=== PATIENT | female | born 1955 | race Caucasian/White ===

== ENCOUNTER 2019-06-09 09:21 | Emergency (ER) | payer OTHER ==
[~2019-06-09] VITALS: Ht 152.4 cm; Wt 86.2 kg
--- NOTE | 2019-06-09 12:06 | EKG ---
[facility] [address] [facility] [place] [address] Signed Normal sinus rhythm Normal ECG No previous ECGs available Confirmed by KERA RENDON MD ([id number]) on 06/09/2019 12:05:45 PM Electronically Signed By: KERA RENDON MD 06/09/19 1206 PATIENT NAME: LUNA ALVAREZ LAKESHIA Electrocardiogram DATE OF : 59 PHYSICIAN: KERA RENDON MD REPORT #: [id number] REPORT IS CONFIDENTIAL AND NOT TO BE RELEASED WITHOUT AUTHORIZATION
== END 2019-06-09 16:35 | disposition home or self-care (01) ==
LOC: ED 09:21
DX: I21.4 Non-ST elevation (NSTEMI) myocardial infarction (principal); Z88.0 Allergy status to penicillin; Z88.8 Allergy status to other drugs, medicaments and biological substances; Z88.7 Allergy status to serum and vaccine
CPT/HCPCS: 71045; 80053; 84484; 85025; 85379; 93005; 93010; 96374; 96375; 99285-25; J1644; J2405

== ENCOUNTER 2022-02-17 07:56 | Day surgery (SDC) | payer OTHER ==
[~2022-02-17] VITALS: Ht 162.6 cm; Wt 93.4 kg
[~2022-02-17 07:56] MED LIST: ATORVASTATIN CA80 MG PO; BAYER CHEWABLE81 MG PO; DAILY VITAMIN1 EAC3 PO; EFFIENT10 MG PO; METOPROLOL SUCC25 MG PO; NITROSTAT0.4 MG SL; SINGULAIR10 MG PO; VENTOLIN HFA18 GM INH
--- NOTE | 2022-02-17 10:05 | NUR ---
02/17/22 Luz5 Roosevelt Palafox ORIENTED TO TIME AND SITUATION ON ENTRY TO PACU. DENIES NAUSEA OR PAIN.
--- NOTE | 2022-02-17 10:49 | OR ---
[facility] [address] [place], [place] [address] Signed DATE OF OPERATION: 02/17/2022 SURGEON: Jorden Black MD PREOPERATIVE DIAGNOSES: 1. Screening. 2. Unremarkable colonoscopy in 2010 at age 55. POSTOPERATIVE DIAGNOSES: 1. Minimal to moderate left-sided diverticulosis. 2. Minimal internal hemorrhoids. PROCEDURE: Colonoscopy without biopsy. ESTIMATED BLOOD LOSS: None. INDICATIONS: Marika is a 66-year-old obese female, asked to see me for a followup screening colonoscopy. She underwent screening colonoscopy in 2010 at the age of 55 in [place], [place]. That was negative according to her memory. She was asked to follow up in 10 years. We were trying to track down that report. She also has a heart history and follows along with Dr. Astorga. She went to him about two years ago just before her right hip replacement. Apparently everything was fine including the cardiac stent. 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 She has no family history of colon cancer or polyps. She has no lower GI complaints. In the office, I gave Marika a pamphlet on colonoscopy. We had reviewed the nature of the test together. There is risk including, but not limited to gas bloating, crampy abdominal pain, bleeding, perforation requiring surgery, and missed diagnosis. We also discussed the need for IV conscious sedation. She had expressed understanding and wished to proceed. PROCEDURE NOTE: Marika was taken into our endoscopy suite and placed in the left lateral decubitus position. She received IV antibiotics for the right hip replacement. A total of 6 mg of Versed and 125 mcg of fentanyl was given to cover the case. A digital rectal exam was performed and this was unremarkable. There were no external hemorrhoids and she had good sphincter tone. The adult colonoscope was introduced and advanced all around into the cecum under direct visualization of the camera without difficulty. Overall, the Electronically Signed By: JORDEN BLACK MD 02/17/22 1049 PATIENT NAME: MARIKA ALVAREZ OPERATIVE REPORT DATE OF : 59 REPORT #: [id number] PHYSICIAN: JORDEN BLACK MD PCP: DAMON MARIE MD REPORT IS CONFIDENTIAL AND NOT TO BE RELEASED WITHOUT AUTHORIZATION [facility] [address] [place] [id number] Signed prep was good. We could easily see the appendiceal orifice and the ileocecal valve. The scope was then slowly withdrawn. She does have minimal to moderate left-sided diverticulosis. They were minimal to moderate in size, few in number, and scattered about. We found no polyps. Once in the rectum, the scope was retroflexed and she does have minimal internal hemorrhoid tissue. After this, the gas was suctioned out and the colonoscope removed. Marika tolerated the procedure quite well. RECOMMENDATIONS: Marika can return in 10 years for repeat colonoscopy given the above findings. Jorden Black MD ALB/MODL /[id number] cc: MD Jorden Moreland MD Copies: JORDEN BLACK MD ~ Electronically Signed By: JORDEN BLACK MD 02/17/22 1049 PATIENT NAME: MARIKA ALVAREZ OPERATIVE REPORT DATE OF : 59 REPORT #: [id number] PHYSICIAN: JORDEN BLACK MD PCP: DAMON MARIE MD REPORT IS CONFIDENTIAL AND NOT TO BE RELEASED WITHOUT AUTHORIZATION
== END 2022-02-17 10:30 | disposition home or self-care (01) ==
LOC: OPS 07:56 → DS 07:56 → OPS 10:30
PROVIDERS: ATTEND Colon & Rectal Surgery
PROC: 0DJD8ZZ Inspection of Lower Intestinal Tract, Via Natural or Artificial Opening Endoscopic (ICD-10-PCS; principal; 2022-02-17 09:00)
DX: Z12.11 Encounter for screening for malignant neoplasm of colon (principal); I10 Essential (primary) hypertension; E78.5 Hyperlipidemia, unspecified; K57.30 Diverticulosis of large intestine without perforation or abscess without bleeding; K64.8 Other hemorrhoids; E66.9 Obesity, unspecified; Z68.35 Body mass index [BMI] 35.0-35.9, adult
CPT/HCPCS: 99153; G0500; J0690; J2250; J3010; J7121